=== PATIENT | male | born 1960 | race Caucasian/White ===

== ENCOUNTER 2023-01-08 15:08 | Emergency (ER) | payer BC ==
[~2023-01-08] VITALS: Ht 185.4 cm; Wt 80.0 kg
[2023-01-08 15:18] VITALS: BP 113/78; O2SAT 97
[2023-01-08] MEDS ORDERED: TETanus/Pertussis (Acell)/Diphther VAC/PF (Tdap-Adult) 0.5ml syringe IMVAC ONE (16:50)
[2023-01-08] MEDS ORDERED: LIDOCAINE 1%/EPI 1:100,000 inj. 10 ML multi-dose vial IJ ONE (16:50)
[2023-01-08] MEDS ORDERED: bacitracin 15gm ointment TP ONE (16:50)
[2023-01-08] MEDS ORDERED: CEPH250T PO (17:21)
[2023-01-08 17:47] VITALS: RESP 18
[2023-01-08 17:48] VITALS: PULSE 72; TEMP 97.8
--- NOTE | 2023-01-08 19:14 | NUR ---
[employer]ED [employer] MESSENGER ASSESSMENT REVIEWED BY BENEDICTO RN, APPROVED
== END 2023-01-08 17:48 | disposition home or self-care (01) ==
LOC: ER 15:09
DX: S61.411A Laceration without foreign body of right hand, initial encounter (principal); W26.0XXA Contact with knife, initial encounter; Y93.89 Activity, other specified; Y92.89 Other specified places as the place of occurrence of the external cause; Y99.8 Other external cause status
CPT/HCPCS: 12032; 90471; 90715; 99284; J3490; 12002; 99283; A6449